=== PATIENT | female | born 1970 | race Caucasian/White ===

== ENCOUNTER 2025-05-29 08:00 | Inpatient (IN) | payer OTHER ==
[2025-05-22 08:32] LABS: BASO % 0.6 % (0.1-1.2); EOS # 0.18 (0.04-0.54); EOS % 2.2 % (0.7-7.0); LYMPH # 2.31 (1.18-3.74); LYMPH % 27.9 % (19.3-53.1); MEAN PLATELET VOLUME 9.10 fl (9.4-12.4); MONO # 0.50 (0.24-0.82); MONO % 6.0 % (4.7-12.5); NEUT # 5.21 (1.56-6.13); NEUT % 63.1 % (34.0-71.1); RED CELL DISTRIBUTION WIDTH 12.4 % (11.6-14.4)
[2025-05-22 08:41] VITALS: BP 121/82
[2025-05-22 08:48] LABS: URINE APPEARANCE Clear; URINE BILIRRUBIN Negative (NEGATIVE); URINE BLOOD Negative; URINE COLOR Yellow; URINE KETONE Trace (NEGATIVE); URINE LEUKOCYTE Trace; URINE NITRATE Negative; URINE UROBILINOGEN 0.2 E.U./dl
[2025-05-22 08:52] LABS: URINE BACTERIA 57.1 uL (0.0-1933); URINE CAST 6.37 uL (0.0-1.40); URINE EPITHELIAL CELLS 18.8 uL (0.0-38.8); URINE RBC 5.9 uL (0.0-20.8); URINE WBC 19.6 uL (0.0-23.2)
[2025-05-22 08:58] LABS: INR 1.04
[2025-05-22 09:15] LABS: URINE GLUCOSE 100 MG/DL (NEGATIVE); URINE PROTEIN 100 (NEGATIVE)
[2025-05-22 10:09] LABS: ALT/SGPT 25.0 U/L (12-78); AST/SGOT 14.0 U/L (15-37); BILIRUBIN TOTAL 0.54 mg/dL (0.3-1.2); BUN CREA RATIO 15.0 (7.0-25.0); CREATININE SERUM 1.91 mg/dL (0.55-1.02); GFR 27.28; GLOBULINA 3.9 G/DL (2.4-3.5); GLUCOSE FASTING 155.0 mg/dL (65-100); OSMOLALITY SERUM 281.0 MOSM/KG (275-295)
[~2025-05-29] VITALS: Ht 165.1 cm; Wt 77.1 kg
[~2025-05-29 08:00] MED LIST: CARVEDILOL25 MG; HYDRALAZINE HCL50 MG PO; PROCARDIA XL90 MG PO; ROSUVASTATIN CA20 MG PO; SPIRONOLACTONE25 MG PO; ZETIA10 MG PO
[2025-05-29] MEDS ORDERED: DEXAMETHASONE SODIUM PHOSPHATE 4 MG/ML VIAL ONE (10:13)
[2025-05-29] MEDS ORDERED: ONDANSETRON HCL 2 MG/ML VIAL IV PRN (14:15)
[2025-05-29] MEDS ORDERED: ACETAMINOPHEN 500 MG GEL..CAP PO SCH (17:00)
[2025-05-29] MEDS ORDERED: CYCLOBENZAPRINE HCL 5 MG TABLET PO SCH (17:00)
[2025-05-29] MEDS ORDERED: SPIRONOLACTONE 25 MG TABLET PO SCH (17:00)
[2025-05-29] MEDS ORDERED: TRAMADOL HCL 50 MG TABLET PO SCH (17:00)
[2025-05-29] MEDS ORDERED: Calcium Carbonate 1 TAB TABLET PO SCH (17:00)
[2025-05-29] MEDS ORDERED: LIDOCAINE HCL 30 ML,MAG HYDROX/ALUMINUM HYD/SIMETH 30 ML,DIPHENHYDRAMINE HCL 75 MG MM SCH (17:00)
[2025-05-29 17:55] VITALS: BP 160/97; O2SAT 99
[2025-05-29 18:22] VITALS: BP 125/76; O2SAT 95
[2025-05-30] VITALS: BP 170/100; O2SAT 99
[2025-05-30] MEDS ORDERED: MAG HYDROX/ALUMINUM HYD/SIMETH 30 ML BLIST.PACK PO ONE (06:47)
[2025-05-30 08:00] VITALS: BP 156/92; O2SAT 99
[2025-05-30] MEDS ORDERED: CARVEDILOL 25 MG TABLET PO SCH (09:00)
[2025-05-30] MEDS ORDERED: ROSUVASTATIN CALCIUM 20 MG TABLET PO SCH (09:00)
[2025-05-30] MEDS ORDERED: NIFEDIPINE 90 MG TAB.SA.OSM PO SCH (09:00)
== END 2025-05-30 12:06 | disposition home or self-care (01) | DRG 627 ==
LOC: CIR.AMB 08:00 → O/R 14:41 → SURG 15:26
PROVIDERS: ADMIT Surgery; ATTEND Surgery
PROC: 0GBL0ZZ Excision of Right Superior Parathyroid Gland, Open Approach (ICD-10-PCS; 2025-05-29)
PROC: 0GBM0ZZ Excision of Left Superior Parathyroid Gland, Open Approach (ICD-10-PCS; 2025-05-29)
PROC: 0GBN0ZZ Excision of Right Inferior Parathyroid Gland, Open Approach (ICD-10-PCS; 2025-05-29)
PROC: 0GBQ0ZZ Excision of Multiple Parathyroid Glands, Open Approach (ICD-10-PCS; 2025-05-29)
PROC: 0GBP0ZZ Excision of Left Inferior Parathyroid Gland, Open Approach (ICD-10-PCS; principal; 2025-05-29 09:45)
DX: E06.3 Autoimmune thyroiditis (principal); E21.0 Primary hyperparathyroidism